=== PATIENT | male | born 1990 | race Hispanic/Latino ===

== ENCOUNTER 2018-07-16 21:07 | Emergency (ER) | payer OTHER ==
[2018-07-16] MEDS ORDERED: KETOROLAC TROMETHAMINE 30MG/ML ONE (21:31)
[2018-07-16 21:52] LABS: BASOPHILS % (AUTO) 0.4 % (0.0-5.0); EOSINOPHILS % (AUTO) 6.9 % (0.0-8.0); HEMATOCRIT 43.6 % (42-54); LYMPHOCYTES % (AUTO) 29.4 % (21.0-51.0); MEAN CORPUSCULAR HEMOGLOBIN 29.4 pg (27.0-33.0); MEAN CORPUSCULAR HGB CONC 33.5 g/dL (32.0-36.0); MEAN CORPUSCULAR VOLUME 87.9 fL (79-99); MONOCYTES % (AUTO) 6.4 % (3.0-13.0); NEUTROPHILS % (AUTO) 56.9 % (40.0-77.0); PLATELET COUNT (AUTO) 284 K/uL (130-400); RED BLOOD CELL COUNT(AUTO) 4.95 MIL/uL (4.50-6.20); RED CELL DISTRIBUTION WIDTH 13.6 % (11.0-15.5); WHITE BLOOD COUNT (AUTO) 13.7 K/uL (4.8-10.8)
[2018-07-16 22:05] LABS: CREATININE 0.9 mg/dL (0.5-1.5); POTASSIUM 4.4 mmol/L (3.5-5.1)
[2018-07-16 22:09] LABS: ALBUMIN 3.3 g/dL (3.5-5.0); BILIRUBIN,TOTAL 0.3 mg/dL (0.2-1.0); TOTAL PROTEIN, SERUM 7.4 g/dL (6.0-8.3)
[2018-07-16] MEDS ORDERED: ACETAMINOPHEN-CODEINE 300/30MG TAB ONE (22:24)
== END 2018-07-16 22:31 | disposition home or self-care (01) ==
LOC: EDH 21:07
DX: M94.0 Chondrocostal junction syndrome [Tietze] (principal); Z72.0 Tobacco use
CPT/HCPCS: 36415; 71045; 76705; 80053; 82150; 83690; 85025; 99284; J1885

== ENCOUNTER 2018-08-22 13:04 | Emergency (ER) | payer SELFPAY ==
[2018-08-22] MEDS ORDERED: KETOROLAC TROMETHAMINE 60 MG/2 ML VIAL ONE (14:21)
[2018-08-22] MEDS ORDERED: ORPHENADRINE CITRATE 30 MG/ML ML ONE (14:21)
[2018-08-22] MEDS ORDERED: DICYCLOMINE HCL 10 MG/ML 2ML AMP IM ONE (14:22)
[2018-08-22 14:50] LABS: BASOPHILS % (AUTO) 0.3 % (0.0-5.0); EOSINOPHILS % (AUTO) 6.2 % (0.0-8.0); HEMATOCRIT 45.7 % (42-54); LYMPHOCYTES % (AUTO) 31.6 % (21.0-51.0); MEAN CORPUSCULAR HEMOGLOBIN 30.2 pg (27.0-33.0); MEAN CORPUSCULAR HGB CONC 34.1 g/dL (32.0-36.0); MEAN CORPUSCULAR VOLUME 88.7 fL (79-99); MONOCYTES % (AUTO) 5.6 % (3.0-13.0); NEUTROPHILS % (AUTO) 56.3 % (40.0-77.0); PLATELET COUNT (AUTO) 264 K/uL (130-400); RED BLOOD CELL COUNT(AUTO) 5.15 MIL/uL (4.50-6.20); RED CELL DISTRIBUTION WIDTH 14.2 % (11.0-15.5); WHITE BLOOD COUNT (AUTO) 12.4 K/uL (4.8-10.8)
[2018-08-22 15:00] LABS: POTASSIUM 3.8 mmol/L (3.5-5.1)
[2018-08-22 15:04] LABS: ALBUMIN 3.7 g/dL (3.5-5.0); BILIRUBIN,TOTAL 0.4 mg/dL (0.2-1.0); TOTAL PROTEIN, SERUM 7.5 g/dL (6.0-8.3)
[2018-08-22] MEDS ORDERED: IOHEXOL-350 75 ML VIAL IV ONE (15:21)
== END 2018-08-22 17:07 | disposition home or self-care (01) ==
LOC: EDH 13:04
DX: R10.11 Right upper quadrant pain (principal); Z72.0 Tobacco use
CPT/HCPCS: 36415; 74177; 76705; 80053; 83690; 85025; 96372 ×2; 99284; J0500; J1885; Q9967; 96374; 96375

== ENCOUNTER 2019-06-19 13:43 | Emergency (ER) | payer OTHER | END 2019-06-19 15:17 | disposition home or self-care (01) | LOC: EDH 13:43 | DX: G89.29 Other chronic pain (principal); R10.9 Unspecified abdominal pain; Z72.0 Tobacco use | CPT/HCPCS: 99281 ==

== ENCOUNTER 2019-10-05 15:33 | Emergency (ER) | payer SELFPAY | END 2019-10-05 16:16 | disposition home or self-care (01) | LOC: EDH 15:33 | DX: R06.00 Dyspnea, unspecified (principal); R03.0 Elevated blood-pressure reading, without diagnosis of hypertension; R05 Cough; Z87.891 Personal history of nicotine dependence ==

== ENCOUNTER → 2021-05-22 | Outpatient (CLI) | payer OTHER | END | disposition home or self-care (01) | LOC: RAH 11:02 | PROVIDERS: ATTEND Otolaryngology Plastic Surgery within the Head & Neck | DX: R13.10 Dysphagia, unspecified (principal) | CPT/HCPCS: 74230; 92611 ==

== ENCOUNTER 2021-06-02 11:14 | Emergency (ER) | payer OTHER ==
[~2021-06-02] VITALS: Ht 175.3 cm; Wt 141.2 kg
[2021-06-02] MEDS ORDERED: MAGNESIUM HYDROXIDE 30 ML/UDCUP ONE (12:16)
[2021-06-02] MEDS ORDERED: LIDOCAINE HCL 2% VISCOUS 15 ML UDCUP ONE (12:16)
[2021-06-02] MEDS ORDERED: MAG/ALUM/SIMETH 30 ML UDCUP PO ONE (12:30)
[2021-06-02] MEDS ORDERED: MAG-156 PO (12:51)
[2021-06-02 13:06] VITALS: BP 116/53
== END 2021-06-02 13:03 | disposition home or self-care (01) ==
LOC: EDH 11:14
DX: S27.818A Other injury of esophagus (thoracic part), initial encounter (principal); X58.XXXA Exposure to other specified factors, initial encounter; Y93.89 Activity, other specified; Y92.89 Other specified places as the place of occurrence of the external cause; Y99.8 Other external cause status
CPT/HCPCS: 70490